=== PATIENT | male | born 1995 | race Caucasian/White ===

== ENCOUNTER 2017-04-04 02:22 | Emergency (ER) | payer SELFPAY ==
[~2017-04-04] VITALS: Ht 180.3 cm; Wt 82.1 kg
[2017-04-04 02:24] VITALS: BP 157/98
== END 2017-04-04 03:15 | disposition home or self-care (01) ==
LOC: ED 03:08
DX: S01.311A Laceration without foreign body of right ear, initial encounter (principal); Y04.0XXA Assault by unarmed brawl or fight, initial encounter; Y93.89 Activity, other specified; Y92.89 Other specified places as the place of occurrence of the external cause; Y99.8 Other external cause status
CPT/HCPCS: 99283